=== PATIENT | male | born 1970 | race Caucasian/White ===

== ENCOUNTER 2017-05-09 16:28 | Emergency (ER) | payer OTHER ==
[~2017-05-09] VITALS: Ht 185.4 cm; Wt 103.9 kg
[~2017-05-09 16:28] MED LIST: ESCITALOPRAM20 M1 PO; HYZAAR PO; IND40 PO; LAC30L PO; LOP50 PO; LOP600 PO; NPHOS PO; OXYCODONE HYDROC5 M2 PO; PRA40 PO; PRI20 PO; Z PO; [UNRECOGNIZED DRUG - OTHER] PO
[2017-05-09 16:45] VITALS: Ht 185.4 cm; Wt 103.9 kg
[2017-05-09 20:34] LABS: BASOPHIL % 0.3 % (0-2); PLATELET COUNT 338 x10^3mcL (130-400); RED CELL DISTRIBUTION WIDTH 14.3 % (11.5-14.5)
[2017-05-09 20:46] LABS: CALCIUM 8.4 mg/dL (8.5-10.1); CARBON DIOXIDE 29.4 mmol/L (21-32); CREATININE SERUM 1.5 mg/dL (0.7-1.3); POTASSIUM SERUM 3.2 mmol/L (3.5-5.1)
[2017-05-09 20:50] LABS: BILIRUBIN TOTAL 0.9 mg/dL (0.20-1.00); TOTAL PROTEIN, SERUM 7.3 g/dL (6.4-8.2)
[2017-05-09 20:51] LABS: ALBUMIN 3.2 g/dL (3.4-5.0)
[2017-05-09 21:02] LABS: AMPHETAMINE QUAL UR NONE DETECTED (NEG <=1000)
[2017-05-09] MEDS ORDERED: ESCITALOPRAM10 M1 PO (21:44)
[2017-05-09] MEDS ORDERED: PROPRANOLOL HCL20 MG PO (21:45)
[2017-05-09] MEDS ORDERED: LACTULOSE10 GM/152 PO (21:45)
[2017-05-09] MEDS ORDERED: LIPI10 PO (21:45)
[2017-05-09] MEDS ORDERED: OXYCODONE HYDROC5 M2 PO (21:46)
[2017-05-10 04:36] VITALS: BP 150/98
== END 2017-05-10 04:30 | disposition short-term general hospital (02) ==
LOC: ED 16:28
PROVIDERS: Emergency Medicine
DX: I63.8 Other cerebral infarction (principal); I10 Essential (primary) hypertension; R74.9 Abnormal serum enzyme level, unspecified; E78.00 Pure hypercholesterolemia, unspecified
CPT/HCPCS: 83880; 87804; J1170; J2270; J2405; J3490; J7030; Q9967